=== PATIENT | female | born 1950 | race Two or more races ===

== ENCOUNTER 2022-01-14 08:30 | Inpatient (IN) | payer OTHER ==
[~2022-01-14] VITALS: Ht 157.5 cm; Wt 90.7 kg
[2022-01-14] MEDS ORDERED: NORVASC5 MG PO (15:32)
[2022-01-14] MEDS ORDERED: BENADRYL25 MG PO (15:33)
[2022-01-21] MEDS ORDERED: GABAPENTIN300 M2 (13:47)
== END 2022-01-22 10:36 | disposition home or self-care (01) | DRG 331 ==
LOC: SURG 01-19 08:30 → SURH 01-19 08:48 → O/R 01-19 08:48 → SURG 01-19 14:30 → SURH 01-19 21:24
PROVIDERS: ADMIT Colon & Rectal Surgery; ATTEND Colon & Rectal Surgery
PROC: 07BC4ZZ Excision of Pelvis Lymphatic, Percutaneous Endoscopic Approach (ICD-10-PCS; 2022-01-19)
PROC: 0DTF4ZZ Resection of Right Large Intestine, Percutaneous Endoscopic Approach (ICD-10-PCS; principal; 2022-01-19 14:30)
DX: C18.3 Malignant neoplasm of hepatic flexure (principal); I11.9 Hypertensive heart disease without heart failure; Z20.822 Contact with and (suspected) exposure to COVID-19